=== PATIENT | male | born 1995 | race African-American/Black ===

== ENCOUNTER 2018-08-20 01:03 | Emergency (ER) | payer OTHER ==
[~2018-08-20] VITALS: Ht 182.9 cm; Wt 68.0 kg
[2018-08-20] MEDS ORDERED: PRILOSEC OTC20 MG ORAL (01:12)
--- NOTE | 2018-08-20 01:13 | Emergency Room Report ---
History of Present Illness General Source: Patient Present Illness HPI This is a 22-year-old male with no past medical history. He presents with chief complaint of sore throat and headache. He called 911 because he said his been having sore throat for the last week. Woke up with pain from the epigastric area going up his chest into his throat. No nausea no vomiting. No fever or chills. Also with headache in the back of his head. No focal deficit. Pain is 7 out of 10. Has not take anything for this. He was concerned because he has been using methamphetamine for the last few years. Denies any focal deficit. Denies any other complaint. Allergies: Coded Allergies: No Known Allergies (Unverified , 08/20/18) Patient History Past Medical History: see triage record, old chart reviewed Past Surgical History: none Pertinent Family History: none Social History: Reports: drug use Immunizations: other Reviewed Nursing Documentation: PMH: Agreed; PSxH: Agreed Review of Systems Eye: Denies: eye pain, blurred vision ENT: Reports: throat pain; Denies: ear pain, nose congestion, throat swelling Respiratory: Denies: cough, shortness of breath Cardiovascular: Denies: chest pain, palpitations Gastrointestinal: Denies: abdominal pain, diarrhea, nausea, vomiting Musculoskeletal: Denies: back pain, joint pain Skin: Denies: rash Neurological: Denies: headache, numbness Endocrine: Denies: increased thirst, increased urine Hematologic/Lymphatic: Denies: easy bruising All Other Systems: negative except mentioned in HPI Physical Exam vital signs unremarkable Sp02 EP Interpretation: reviewed, normal General Appearance: well appearing, no apparent distress, alert Head: normocephalic, atraumatic Eyes: bilateral eye PERRL, bilateral eye EOMI ENT: hearing grossly normal, normal pharynx Neck: full range of motion, supple, no meningismus Respiratory: chest non-tender, lungs clear, normal breath sounds Cardiovascular #1: regular rate, rhythm, no murmur Gastrointestinal: normal bowel sounds, non tender, no mass, no organomegaly, no bruit, non-distended Musculoskeletal: back normal, gait/station normal, normal range of motion Psychiatric: mood/affect normal Skin: warm/dry Medical Decision Making Diagnostic Impression: Primary Impression: Headache Qualified Codes: G44.209 - Tension-type headache, unspecified, not intractable Additional Impressions: GERD (gastroesophageal reflux disease) Qualified Codes: K21.9 - Gastro-esophageal reflux disease without esophagitis Methamphetamine abuse ER Course Patient present with symptoms consistent with GERD. No evidence of ACS, PE, dissection. No evidence of any peritonsillar abscess, strep throat to name a few. No evidence of any stricture. Headache is tension-like in nature. No evidence of any bleed. No focal deficit. We'll discharge home. Status: improved Disposition: HOME, SELF-CARE Condition: Stable Scripts Omeprazole Magnesium (PRILOSEC OTC) 20 Mg Tablet. 20 MG ORAL DAILY, #30 TAB Prov: Braulio Yusuf MD 08/20/18 Additional Instructions: Follow-up with your doctor in 7 days. Stop using drugs. Return if symptom worsen. Braulio Yusuf MD Aug 20, 2018 01:13
[2018-08-20] MEDS ORDERED: Mylanta II UD 30ml ORAL ONE (01:15)
[2018-08-20 01:20] VITALS: BP 115/75
== END 2018-08-20 01:17 | disposition home or self-care (01) ==
LOC: EDBD 01:03 → EMR 01:14
DX: G44.209 Tension-type headache, unspecified, not intractable (principal); R10.13 Epigastric pain; K21.9 Gastro-esophageal reflux disease without esophagitis; F15.10 Other stimulant abuse, uncomplicated
CPT/HCPCS: 99282